=== PATIENT | female | born 1960 | race Caucasian/White ===

== ENCOUNTER 2017-03-17 09:23 | Emergency (ER) | payer BC ==
[2017-03-17 10:36] LABS: CHLORIDE,CL 99 mEq/L (98-106); SODIUM,NA 139 mEq/L (136-145)
--- NOTE | 2017-03-17 10:43 | EDM.PDOC ---
[id number] "not feeling well" Time Seen by Provider: 03/17/17 09:25 Source of Information: Reports: Patient History Limitations: Reports: No Limitations - History of Present Illness INITIAL COMMENTS - FREE TEXT/NARRATIVE: This patient is a 56 year old female that presents to the ER. Patient reports that when she woke up this morning she felt generally not feeling well. She reports that she went to brush her hair with her right hand and dropped the comb. She reports that she went to put change in her right pocket and dropped the change. She reports that she generally feels weak and malaise, not unilaterally. She reports that she was diagnosed with a UTI a week ago from Friday and has been taking an abx since then. She reports that she still has some mild urinary frequency. She reports that yesterday she was very sweaty and felt like she may had a fever. She did not measure. The patient denies whitehead, dizziness, n, v, d, cp, soa, abd pain, bowel changes, rashes, neck pain, neck stiffness, unilateral weaknesses, difficulty with walking, slurred speech. She does also report that his morning she sat down at work at her computer and could not gather her thoughts to start work. Patient is fully alert and oriented. Onset: Today Onset Date: 03/17/17 Onset Time: 07:00 Severity: Mild Improves with: Reports: None Worsens with: Reports: None Associated Symptoms: Reports: Confusion, Diaphoresis, Fever/Chills, Malaise, Weakness. Denies: Chest Pain, Cough, cough w sputum, Headaches, Loss of Appetite, Nausea/Vomiting, Rash, Seizure, Shortness of Breath, Syncope - Related Data Allergies Allergy/AdvReac Type Severity Reaction Status Date / Time codeine Allergy Cannot Verified 03/17/17 09:39 Remember Home Meds: Home Meds Aspirin/Calcium Carbonate/Mag [Aspirin Buffered 325 mg Tab] 325 mg PO DAILY 08/31 [History] Cyclobenzaprine [Flexeril] 10 mg PO BEDTIME 11/16/13 [History] Losartan [Cozaar] 100 mg PO DAILY 11/16/13 [History] Mesalamine [Lialda] 1.2 gm PO DAILY 11/16/13 [History] Nebivolol [Bystolic] 5 mg PO DAILY 04/01/14 [History] Pantoprazole [Protonix] 40 mg PO DAILY 11/16/13 [History] Trospium Chloride 20 mg PO BID 11/16/13 [History] Cholecalciferol (Vitamin D3) [Vitamin D3] 1,000 unit PO DAILY 03/17/17 [History] Insulin Pump Controller [Snap Insulin Pump Controller] 75 unit SUBCUT DAILY [History] Lutein 20 mg PO DAILY 03/17/17 [History] Magnesium 400 mg PO DAILY 03/17/17 [History] Multivitamin [Multi-Day Vitamins] 1 tab PO DAILY 03/17/17 [History] [place]-3S/DHA/Epa/Fish Oil/D3 [[place]-3 + D Softgel] 1 cap PO DAILY 03/17/17 [ History] Triamterene/Hydrochlorothiazid [Triamterene-HCTZ 37.5-25 MG] 1 cap PO DAILY [History] Vitamin E 400 unit PO DAILY 03/17/17 [History] Social & Family History - Tobacco Use Smoking Status *Q: Never Smoker ED ROS GENERAL - Review of Systems Review Of Systems: See Below Constitutional: Reports: Chills, Malaise, Weakness (generally), Diaphoresis HEENT: Reports: No Symptoms Respiratory: Reports: No Symptoms. Denies: Shortness of Breath, Wheezing, Cough , Sputum Cardiovascular: Reports: No Symptoms. Denies: Chest Pain, Lightheadedness, Palpitations, Syncope Endocrine: Reports: No Symptoms GI/Abdominal: Reports: No Symptoms. Denies: Nausea, Vomiting : Reports: Frequency Musculoskeletal: Reports: No Symptoms. Denies: Neck Pain, Joint Pain, Joint Swelling Skin: Reports: No Symptoms Neurological: Reports: Confusion (disorientation this morning while at work computer. ). Denies: Dizziness, Headache, Numbness, Paresthesia, Seizure, Syncope, Tremors, Change in Speech, Gait Disturbance Psychiatric: Reports: No Symptoms Hematologic/Lymphatic: Reports: No Symptoms Immunologic: Reports: No Symptoms ED EXAM, GENERAL - Physical Exam Exam: See Below Exam Limited By: No Limitations General Appearance: Alert, WD/WN, No Apparent Distress Eye Exam: Bilateral Eye: EOMI, Normal Inspection, PERRL Ears: Normal External Exam, Normal Canal, Hearing Grossly Normal, Normal TMs Ear Exam: Bilateral Ear: Auricle Normal, Canal Normal, TM normal Nose: Normal Inspection, Normal Mucosa, No Blood Throat/Mouth: Normal Inspection, Normal Lips, Normal Teeth, Normal Gums, Normal Oropharynx, Normal Voice, No Airway Compromise Head: Atraumatic, Normocephalic Neck: Normal Inspection, Supple, Non-Tender, Full Range of Motion Respiratory/Chest: No Respiratory Distress, Lungs Clear, Normal Breath Sounds, No Accessory Muscle Use Cardiovascular: Normal Peripheral Pulses, Regular Rate, Rhythm, No Edema, No Gallop, No JVD, No Murmur, No Rub Peripheral Pulses: 2+: Radial (L), Radial (R), Posterior Tibial (L), Posterior Tibial (R) GI/Abdominal: Normal Bowel Sounds, Soft, Non-Tender, No Organomegaly, No Distention, No Abnormal Bruit, No Mass, Pelvis Stable Back Exam: Normal Inspection, Full Range of Motion. No: CVA Tenderness (L), CVA Tenderness (R) Extremities: Normal Inspection, Normal Range of Motion, Non-Tender, No Pedal Edema, Normal Capillary Refill Neurological: Alert, Oriented, CN II-XII Intact, Normal Cognition, Normal Gait, No Motor/Sensory Deficits. No: Confused, Disoriented, Slow to Respond, Unresponsive, Memory Loss Recent Events, Abnormal Gait, Sensory/Motor Deficit Psychiatric: Normal Affect, Normal Mood Skin Exam: Warm, Dry, Intact, Normal Color, No Rash Lymphatic: No Adenopathy EKG INTERPRETATION EKG Date: 03/17/17 Time: 10:54 Rhythm: NSR Rate (Beats/Min): 71 Roper: Normal P-Wave: Present QRS: Normal ST-T: Normal QT: Normal Comparison: NA - No Prior EKG Course - Vital Signs Last Recorded V/S: Last Vital Signs Temp 97.2 F 03/17/17 09:23 Pulse 73 03/17/17 09:23 Resp 20 03/17/17 09:23 BP 161/97 H 03/17/17 09:23 Pulse Ox 98 03/17/17 09:23 - Orders/Labs/Meds Orders: Active Orders 24 hr Category Date Time Status Chest 2V [CR] Stat Exams 03/17/17 10:44 Taken Head wo Cont [CT] Stat Exams 03/17/17 09:40 Taken CULTURE BLOOD [BC] Stat Lab 03/17/17 10:10 Received CULTURE BLOOD [BC] Stat Lab 07/31/17 10:15 Received Blood Culture x2 Reflex Set [OM.PC] Stat Oth 03/17/17 09:42 Ordered Labs: Laboratory Tests 03/17/17 03/17/17 03/17/17 Range/Units 10:10 10:10 10:15 WBC 12.0 H (5.0-10.0) 10^3/uL RBC 4.65 (4.00-5.50) 10^6/uL Hgb 14.0 (12.0-16.0) g/dL Hct 40.0 (37.0-47.0) % MCV 86.0 (82.0-94.0) fL MCH 30.1 (27.0-32.0) pg MCHC 35.0 (33.0-38.0) g/dL RDW Coeff of [place] 12.5 (11.0-15.0) % Plt Count 392 (150-400) 10^3/uL Neut % (Auto) 71.1 (35-85) % Lymph % (Auto) 12.2 (10-55) % [place] % (Auto) 14.4 (0-16) % Eos % (Auto) 2.1 (0-5) % Baso % (Auto) 0.2 (0-3) % Neut # (Auto) 8.53 H (1.80-7.00) 10^3/uL Lymph # (Auto) 1.46 (1.00-4.80) 10^3/uL [place] # (Auto) 1.72 H (0.00-0.80) 10^3/uL Eos # (Auto) 0.25 (0.00-0.45) 10^3/uL Baso # (Auto) 0.02 10^3/uL Sodium 139 (136-145) mEq/L Potassium 3.3 L (3.5-5.0) mEq/L Chloride 99 (98-106) mEq/L Carbon Dioxide 29 (21-32) mmol/L BUN 25 H D (7-18) mg/dL Creatinine 1.4 H D (0.6-1.0) mg/dL Est Cr Clr Drug Dosing TNP Estimated GFR (MDRD) 39 L (>=60) mL/min Glucose 64 L D (75-99) mg/dL Lactic Acid 1.4 (0.4-2.0) mmol/L Calcium 9.2 (8.4-10.1) mg/dL Total Bilirubin 0.4 (0.0-1.0) mg/dL AST 23 (15-37) U/L ALT 30 (12-78) U/L Alkaline Phosphatase 102 (46-116) U/L Troponin I (0.00-0.06) ng/mL Total Protein 7.8 (6.4-8.2) g/dL Albumin 3.0 L (3.4-5.0) g/dL Urine Color (YELLOW) Urine Appearance (CLEAR) Urine pH (4.5-8.0) Ur Specific [place] (1.003-1.020) Urine Protein (NEGATIVE) mg/dL Urine Glucose (UA) (NEGATIVE) mg/dL Urine Ketones (NEGATIVE) mg/dL Urine Occult Blood (NEGATIVE) Urine Nitrite (NEGATIVE) Urine Bilirubin (NEGATIVE) Urine Urobilinogen (0.2-1.0) EU/dL Ur Leukocyte Esterase (NEGATIVE) Urine RBC (0-5) /HPF Urine WBC (0-5) /HPF Ur Squamous Epith Cells (NOT SEEN) /HPF 03/17/17 03/17/17 Range/Units 10:19 10:20 WBC (5.0-10.0) 10^3/uL RBC (4.00-5.50) 10^6/uL Hgb (12.0-16.0) g/dL Hct (37.0-47.0) % MCV (82.0-94.0) fL MCH (27.0-32.0) pg MCHC (33.0-38.0) g/dL RDW Coeff of [place] (11.0-15.0) % Plt Count (150-400) 10^3/uL Neut % (Auto) (35-85) % Lymph % (Auto) (10-55) % [place] % (Auto) (0-16) % Eos % (Auto) (0-5) % Baso % (Auto) (0-3) % Neut # (Auto) (1.80-7.00) 10^3/uL Lymph # (Auto) (1.00-4.80) 10^3/uL [place] # (Auto) (0.00-0.80) 10^3/uL Eos # (Auto) (0.00-0.45) 10^3/uL Baso # (Auto) 10^3/uL Sodium (136-145) mEq/L Potassium (3.5-5.0) mEq/L Chloride (98-106) mEq/L Carbon Dioxide (21-32) mmol/L BUN (7-18) mg/dL Creatinine (0.6-1.0) mg/dL Est Cr Clr Drug Dosing Estimated GFR (MDRD) (>=60) mL/min Glucose (75-99) mg/dL Lactic Acid (0.4-2.0) mmol/L Calcium (8.4-10.1) mg/dL Total Bilirubin (0.0-1.0) mg/dL AST (15-37) U/L ALT (12-78) U/L Alkaline Phosphatase (46-116) U/L Troponin I < 0.017 (0.00-0.06) ng/mL Total Protein (6.4-8.2) g/dL Albumin (3.4-5.0) g/dL Urine Color Yellow (YELLOW) Urine Appearance Clear (CLEAR) Urine pH 6.5 (4.5-8.0) Ur Specific [place] 1.006 (1.003-1.020) Urine Protein Negative (NEGATIVE) mg/dL Urine Glucose (UA) Negative (NEGATIVE) mg/dL Urine Ketones Negative (NEGATIVE) mg/dL Urine Occult Blood Trace-intact H (NEGATIVE) Urine Nitrite Negative (NEGATIVE) Urine Bilirubin Negative (NEGATIVE) Urine Urobilinogen 0.2 (0.2-1.0) EU/dL Ur Leukocyte Esterase Negative (NEGATIVE) Urine RBC Not seen (0-5) /HPF Urine WBC 0-5 (0-5) /HPF Ur Squamous Epith Cells Occasional H (NOT SEEN) /HPF Meds: Medications Discontinued Medications Generic Name Dose Route Start Last Admin Trade Name Freq PRN Reason Stop Dose Admin Sodium Chloride 1,000 mls @ 1,000 mls/hr 03/17/17 10:50 03/17/17 11:25 Normal Saline IV 03/17/17 11:49 1,000 mls/hr .BOLUS ONE Administration - Radiology Interpretation Free Text/Narrative:: Head Ct: no acute findings. - Re-Assessments/Exams Free Text/Narrative Re-Assessment/Exam: 03/17/17 10:47 Upon arrival to ER, patient took own blood sugar, it was 55. She was given crackers to eat. 03/17/17 12:39 Patient reports that after the fluids that she is feeling much better. She is sitting up in the bed and reports she is ready to go home. Departure - Departure Time of Disposition: 13:36 Disposition: Home, Self-Care 01 Condition: Fair Clinical Impression: Renal insufficiency - Discharge Information Instructions: Rehydration, Adult, Dehydration, Adult, [id number] Referrals: Nghia Pablo MD [Primary Care Provider] - Forms: ED Department Discharge Additional Instructions: Followup with your primary care provide within the next 2-3 days for recheck Return to the ER for worsening of condition or any emergent concerns Increase fluids Go home and rest in a cool environment - My Orders Last 24 Hours: My Active Orders 03/17/17 09:40 Head wo Cont [CT] Stat 03/17/17 09:42 Blood Culture x2 Reflex Set [OM.PC] Stat 03/17/17 10:10 CULTURE BLOOD [BC] Stat 03/17/17 10:15 CULTURE BLOOD [BC] Stat 03/17/17 10:44 Chest 2V [CR] Stat - Assessment/Plan Last 24 Hours: My Active Orders 03/17/17 09:40 Head wo Cont [CT] Stat 03/17/17 09:42 Blood Culture x2 Reflex Set [OM.PC] Stat 03/17/17 10:10 CULTURE BLOOD [BC] Stat 03/17/17 10:15 CULTURE BLOOD [BC] Stat 03/17/17 10:44 Chest 2V [CR] Stat Plan: PLEASE SEE RN NOTE FOR PFSH.
[2017-03-17 10:44] VITALS: BP 161/97
[2017-03-17] MEDS ORDERED: Sodium Chloride 0.9% 1,000 ML IV ONE (10:50)
== END 2017-03-17 13:43 | disposition home or self-care (01) ==
LOC: CC.ED 09:23
DX: N28.9 Disorder of kidney and ureter, unspecified (principal); Z88.5 Allergy status to narcotic agent; Z79.82 Long term (current) use of aspirin; Z79.4 Long term (current) use of insulin
CPT/HCPCS: 36415; 70450; 71020; 80053; 81001; 83605; 84484; 85025; 87040; 93005; 96360; 99284; J7030

== ENCOUNTER 2017-08-24 08:40 | Emergency (ER) | payer BC ==
[2017-08-24] MEDS ORDERED: Aspirin 81 MG Tab.Chew PO ONE (09:05)
[2017-08-24 09:16] VITALS: BP 130/78
[2017-08-24 09:22] LABS: CHLORIDE,CL 102 mEq/L (98-106); SODIUM,NA 143 mEq/L (136-145)
[2017-08-24] MEDS ORDERED: methylPREDNISolone Acetate 80 MG/ML SDV IM ONE (09:34)
[2017-08-24] MEDS ORDERED: Lidocaine 1% 20 ML MDV INJECT ONE (09:34)
[2017-08-24] MEDS ORDERED: cefTRIAXone 1 GM Vial IM ONE (09:34)
--- NOTE | 2017-08-24 09:38 | EDM.PDOC ---
ED HPI GENERAL MEDICAL PROBLEM - General Chief Complaint: General Stated Complaint: chest pressure Time Seen by Provider: 08/24/17 09:20 Source of Information: Reports: Patient History Limitations: Reports: No Limitations - History of Present Illness INITIAL COMMENTS - FREE TEXT/NARRATIVE: Patient presents to ER with complaints of chest tightness. States awoke with a heaviness to her chest that feels like congestion. She relates she has a history of an PR with CABG so was worried it could be cardiac, however, did not feel at all like what she experienced with that. She had a coughing spell this am with phlegm production but no other cough otherwise. Denies fever. Has been on Macrobid for a UTI since Friday. Was initially on Bactrim but found that it was resistant so they changed her to Macrobid on Friday. Patient denies wheezing, mild dyspnea. No diaphoresis or nausea. Feels like she can't get enough air in at times. Onset: Today Duration: Hour(s): Location: Reports: Chest Quality: Reports: Burning Severity: Mild Associated Symptoms: Reports: No Other Symptoms Treatments [employer]: Reports: Other (see below) (macrobid) - Related Data Allergies Allergy/AdvReac Type Severity Reaction Status Date / Time codeine Allergy Cannot Verified 08/24/17 09:00 Remember Home Meds: Home Meds Aspirin/Calcium Carbonate/Mag [Aspirin Buffered 325 mg Tab] 325 mg PO DAILY 08/31 [History] Cyclobenzaprine [Flexeril] 10 mg PO BEDTIME 11/16/13 [History] Losartan [Cozaar] 100 mg PO DAILY 11/16/13 [History] Mesalamine [Lialda] 1.2 gm PO DAILY 11/16/13 [History] Nebivolol [Bystolic] 5 mg PO DAILY 11/16/13 [History] Pantoprazole [Protonix] 40 mg PO DAILY 11/16/13 [History] Trospium Chloride 20 mg PO BID 11/16/13 [History] Cholecalciferol (Vitamin D3) [Vitamin D3] 1,000 unit PO DAILY 03/17/17 [History] Insulin Pump Controller [Snap Insulin Pump Controller] 75 unit SUBCUT DAILY [History] Lutein 20 mg PO DAILY 03/17/17 [History] Magnesium 400 mg PO DAILY 03/17/17 [History] Multivitamin [Multi-Day Vitamins] 1 tab PO DAILY 03/17/17 [History] [place]-3S/DHA/Epa/Fish Oil/D3 [[place]-3 + D Softgel] 1 cap PO DAILY 03/17/17 [ History] Triamterene/Hydrochlorothiazid [Triamterene-HCTZ 37.5-25 MG] 1 cap PO DAILY [History] Vitamin E 400 unit PO DAILY 03/17/17 [History] Cranberry Extract [Cranberry] 200 mg PO DAILY 08/24/17 [History] Cyanocobalamin (Vitamin B-12) [Vitamin B-12] 1,000 mcg PO DAILY 08/24/17 [ History] Nitrofurantoin [place]/Macrocryst [Macrobid] 100 mg PO BID 08/24/17 [History] Soy [place]so[place]a/Blk [place]/Mag Bark [[place] 155 mg Capsule] 155 mg PO DAILY [History] Ubidecarenone [Coq-10] 100 mg PO DAILY 08/24/17 [History] Past Medical History HEENT History: Reports: Allergic Rhinitis Cardiovascular History: Reports: Bypass, CAD, High Cholesterol, Hypertension Gastrointestinal History: Reports: GERD, Irritable Bowel Syndrome Genitourinary History: Reports: Other (See Below) Other Genitourinary History: nocturia, overactive bladder Musculoskeletal History: Reports: Arthritis Endocrine/Metabolic History: Reports: Diabetes, Type I, Vitamin D Deficiency - Past Surgical History Cardiovascular Surgical History: Reports: Coronary Artery Bypass GI Surgical History: Reports: Appendectomy, Cholecystectomy, Colonoscopy Female Surgical History: Reports: Section, Hysterectomy, Other (See Below) Other Female Surgeries/Procedures: bladder lift surgery Social & Family History - Tobacco Use Smoking Status *Q: Never Smoker - Caffeine Use Caffeine Use: Reports: None - Recreational Drug Use Recreational Drug Use: No ED ROS GENERAL - Review of Systems Review Of Systems: See Below Constitutional: Reports: Malaise. Denies: Fever, Chills, Weakness, Fatigue HEENT: Denies: Rhinitis, Sinus Problem, Throat Pain Respiratory: Reports: Shortness of Breath, Cough, Other (chest pressure). Denies: Wheezing Cardiovascular: Denies: Chest Pain, Lightheadedness Endocrine: Denies: Fatigue GI/Abdominal: Denies: Abdominal Pain, Constipation, Diarrhea, Nausea, Vomiting : Reports: Frequency. Denies: Flank Pain Musculoskeletal: Reports: No Symptoms Skin: Reports: No Symptoms Neurological: Reports: No Symptoms Psychiatric: Reports: No Symptoms ED EXAM, GENERAL - Physical Exam Exam: See Below Exam Limited By: No Limitations General Appearance: Alert, WD/WN, No Apparent Distress Ears: Normal External Exam, Normal Canal, Normal TMs Nose: Normal Inspection, Normal Mucosa, Clear Rhinorrhea Throat/Mouth: Normal Inspection, Normal Oropharynx Head: Normocephalic Neck: Normal Inspection, Supple, Non-Tender Respiratory/Chest: No Respiratory Distress, Lungs Clear, Decreased Breath Sounds Cardiovascular: Regular Rate, Rhythm GI/Abdominal: Normal Bowel Sounds, Soft, Non-Tender Extremities: Normal Inspection, Normal Range of Motion Neurological: Alert, Oriented Skin Exam: Warm, Dry Course - Vital Signs Last Recorded V/S: Last Vital Signs Temp 98.6 F 08/24/17 08:45 Pulse 91 08/24/17 09:15 Resp 16 08/24/17 09:00 BP 130/78 08/24/17 09:15 Pulse Ox 93 L 08/24/17 08:45 - Orders/Labs/Meds Orders: Active Orders 24 hr Category Date Time Status EKG Documentation Completion [RC] STAT Care 08/24/17 08:55 Active Chest 2V [CR] Stat Exams 08/24/17 08:53 Taken Labs: Laboratory Tests 08/24/17 08/24/17 08/24/17 Range/Units 08:55 08:55 08:55 WBC 21.5 H* (5.0-10.0) 10^3/uL RBC 4.77 (4.00-5.50) 10^6/uL Hgb 14.0 (12.0-16.0) g/dL Hct 41.1 (37.0-47.0) % MCV 86.2 (82.0-94.0) fL MCH 29.4 (27.0-32.0) pg MCHC 34.1 (33.0-38.0) g/dL RDW Coeff of [place] 13.2 (11.0-15.0) % Plt Count 364 (150-400) 10^3/uL Neut % (Auto) 85.4 H (35-85) % Lymph % (Auto) 4.4 L (10-55) % [place] % (Auto) 7.1 (0-16) % Eos % (Auto) 3.0 (0-5) % Baso % (Auto) 0.1 (0-3) % Neut # (Auto) 18.42 H (1.80-7.00) 10^3/uL Lymph # (Auto) 0.94 L (1.00-4.80) 10^3/uL [place] # (Auto) 1.52 H (0.00-0.80) 10^3/uL Eos # (Auto) 0.64 H (0.00-0.45) 10^3/uL Baso # (Auto) 0.02 10^3/uL PT 10.7 (9.7-12.3) SEC INR 0.99 (0.92-1.18) APTT 28.0 (20.0-45.0) SEC Sodium 143 (136-145) mEq/L Potassium 3.1 L (3.5-5.0) mEq/L Chloride 102 (98-106) mEq/L Carbon Dioxide 30 (21-32) mmol/L BUN 13 (7-18) mg/dL Creatinine 0.9 (0.6-1.0) mg/dL Est Cr Clr Drug Dosing 67.87 mL/min Estimated GFR (MDRD) > 60 (>=60) mL/min Glucose 105 H D (75-99) mg/dL Calcium 9.2 (8.4-10.1) mg/dL Lactate Dehydrogenase 226 H (100-190) U/L Creatine Kinase 246 H (21-215) U/L Troponin I < 0.017 (0.00-0.06) ng/mL C-Reactive Protein 8.9 H (0.2-0.8) mg/dL Meds: Medications Discontinued Medications Generic Name Dose Route Start Last Admin Trade Name Pranavq PRN Reason Stop Dose Admin Aspirin 324 mg 08/24/17 09:05 08/24/17 08:56 Aspirin PO 08/24/17 09:06 324 mg ONETIME ONE Administration Ceftriaxone Sodium 1 gm 08/24/17 09:34 08/24/17 09:41 Rocephin IM 08/24/17 09:35 1 gm ONETIME ONE Administration Lidocaine HCl 20 ml 08/24/17 09:34 08/24/17 09:41 Xylocaine 1% INJECT 08/24/17 09:35 2.1 ml ONETIME ONE Administration Methylprednisolone Acetate 80 mg 08/24/17 09:34 08/24/17 09:41 Depo-Medrol IM 08/24/17 09:35 80 mg ONETIME ONE Administration - Re-Assessments/Exams Free Text/Narrative Re-Assessment/Exam: 08/24/17 Labs reviewed. WBC, CRP elevated. Chest xray negative at this time. Discussed with patient. Departure - Departure Time of Disposition: 09:35 Disposition: Home, Self-Care 01 Condition: Good Clinical Impression: URI (upper respiratory infection) - Discharge Information Forms: ED Department Discharge Additional Instructions: 1. Push fluids 2. Continue Macrobid for coverage for UTI 3. Start Levaquin tomorrow and take daily for 10 days 4. Potassium 20 mEq daily. Follow up in 2 weeks with primary care provider for ER recheck and labs 5. Tylenol for discomfort 6. Call with any questions - My Orders Last 24 Hours: My Active Orders 08/24/17 08:53 Chest 2V [CR] Stat 08/24/17 08:55 EKG Documentation Completion [RC] STAT - Assessment/Plan Last 24 Hours: My Active Orders 08/24/17 08:53 Chest 2V [CR] Stat 08/24/17 08:55 EKG Documentation Completion [RC] STAT
== END 2017-08-24 09:58 | disposition home or self-care (01) ==
LOC: CC.ED 08:40
DX: J06.9 Acute upper respiratory infection, unspecified (principal); E78.00 Pure hypercholesterolemia, unspecified; I10 Essential (primary) hypertension; E10.9 Type 1 diabetes mellitus without complications; K21.9 Gastro-esophageal reflux disease without esophagitis; Z88.5 Allergy status to narcotic agent; Z79.899 Other long term (current) drug therapy; Z79.82 Long term (current) use of aspirin
CPT/HCPCS: 36415; 71046; 80048; 82550; 83615; 84484; 85025; 85610; 85730; 86140; 93005; 96372; 99285; A9270; J0696; J1040